=== PATIENT | female | born 1980 | race Caucasian/White ===

== ENCOUNTER → 2021-05-22 15:16 | Outpatient (CLI) | payer OTHER, SELFPAY ==
--- NOTE | 2021-05-22 15:22 | MM_ITS ---
PROCEDURE: MM DIG SCREENING MAMM BI W/CAD Digital Breast Tomosynthesis Included CLINICAL INDICATION: Breast cancer screening No personal or family history of breast cancer. COMPARISON: This is a baseline exam, patient without complaints TECHNIQUE: Standard CC and MLO images and 3D Tomosynthesis was obtained. R2 CAD reviewed. FINDINGS: Moderate diffuse fibroglandular densities are seen throughout both breasts. There are 2 mole markers left breast. There are 2-3 nodular densities left breast and nodular density right breast. Recommend the patient return for spot compression views and ultrasound for additional evaluation though these likely are benign but this is a baseline study. There are no CAD markings. IMPRESSION: Fibrofatty parenchyma with nodular densities in each breast BI-RAD Category: 0 Need Additional Imaging Evaluation FOLLOW-UP: IMM Immediate Follow-up Recommended (A letter has been sent to the patient regarding results of the study.) Dictated by: Dr. Reece Santizo MD 05/24/2021 14:48 Dr. Reece Santizo MD in [place] 05/24/2021 14:48
== END ==
PROVIDERS: PCP Physician Assistant; Visit Provider Physician Assistant
DX: Z12.31 Encounter for screening mammogram for malignant neoplasm of breast (principal); M79.645 Pain in left finger(s)
CPT/HCPCS: 77063; 77067

== ENCOUNTER 2021-05-22 15:45 | Outpatient (RCR) | payer OTHER, SELFPAY | END 2021-05-22 16:47 | disposition home or self-care (01) | LOC: OT 15:45 | PROVIDERS: Visit Provider Physician Assistant | DX: M79.645 Pain in left finger(s) (principal) | CPT/HCPCS: 97763 ==

== ENCOUNTER → 2021-06-14 13:41 | Outpatient (CLI) | payer OTHER, SELFPAY ==
--- NOTE | 2021-06-14 | US_ITS ---
PROCEDURE: MM DIG MAMM BI DX W/CAD Digital Breast Tomosynthesis Included Right breast ultrasound complete Left breast ultrasound complete CLINICAL INDICATION: abn mamm COMPARISON: MG MM DIG SCREENING MAMM BI W/CAD from 05/22/2021 US US BREAST LT COMPLETE from 06/14/2021 US US BREAST RT COMPLETE from 06/14/2021 TECHNIQUE: Bilateral problem solving views performed along bilateral breast ultrasound. FINDINGS: There are scattered areas of fibroglandular density Right breast: Scattered small nodes are present in the axilla. Scattered small nodular opacities are present in the posterior 1/3 of the right breast. These have a benign appearance. On the CC view the spot-compression view initially showed some asymmetry in the deep slightly medial aspect of the right breast which appear to compress out on a subsequent spot view with faint benign-appearing nodular opacity in this region at approximately 6 mm. Right breast ultrasound: No cystic or solid nodules demonstrated. Few mildly prominent lymph nodes. Left breast: Benign-appearing 7 mm nodular density in the medial aspect of the left breast felt to be at the 10 o'clock region. No malignant appearing mass or malignant-appearing microcalcification. Left breast ultrasound: No cystic or solid nodules apparent. There are few mildly prominent lymph nodes. IMPRESSION: Probably benign findings. Small bilateral nodular lesions on the mammogram not demonstrated by ultrasound. Recommend six-month mammographic follow-up to confirm stability BI-RAD Category: 3 Probably Benign Finding Short Term Follow-Up FOLLOW-UP: 6M 6 Month Follow-up (A letter has been sent to the patient regarding results of the study.) Dictated by: Tommy Alvarez MD 06/26/2021 12:07 Tommy Alvarez MD in [place] 06/26/2021 12:07
== END ==
PROVIDERS: PCP Physician Assistant; Visit Provider Physician Assistant
DX: R92.8 Other abnormal and inconclusive findings on diagnostic imaging of breast (principal)
CPT/HCPCS: 76641; 77062; 77066; G0279

== ENCOUNTER → 2021-07-24 13:45 | Outpatient (CLI) | payer OTHER, SELFPAY ==
--- NOTE | 2021-07-24 13:48 | XR_ITS ---
PROCEDURE: XR HAND LT MIN 3V CLINICAL INDICATION: L Hand pain COMPARISON: No exams were available for comparison FINDINGS: No fracture or dislocation. No lytic or blastic change. There is normal mineralization. The joint spaces are well-preserved. No significant degenerative/arthritic changes. No erosive changes evident. Other findings:None. IMPRESSION: No acute findings. Dictated by: Tommy Alvarez MD 07/24/2021 14:52 Tommy Alvarez MD in [place] 07/24/2021 14:52
== END ==
PROVIDERS: PCP Physician Assistant; Visit Provider Nurse Practitioner Family
DX: M79.642 Pain in left hand (principal)
CPT/HCPCS: 73130

== ENCOUNTER → 2021-09-17 14:36 | Outpatient (CLI) | payer OTHER, SELFPAY ==
[2021-09-19 08:15] LABS: Estradiol 40.9 pg/mL (.); FSH 16.7 mIU/mL (.); LH 13.3 mIU/mL (.); Progesterone 0.2 ng/mL (.)
== END ==
PROVIDERS: PCP Nurse Practitioner Family; Visit Provider Obstetrics & Gynecology
DX: Z01.419 Encounter for gynecological examination (general) (routine) without abnormal findings (principal)
CPT/HCPCS: 36415; 82670; 83001; 83002; 84144

== ENCOUNTER → 2021-09-23 14:16 | Outpatient (CLI) | payer OTHER, SELFPAY ==
--- NOTE | 2021-09-23 14:16 | US_ITS ---
FINAL REPORT CLINICAL HISTORY: Amenorrhea X 1 YR FINDINGS: Transvaginal sonographic images of the pelvis were obtained. The uterus measures 9.3 x 4.1 x 5.5 cm. The endometrium measures 4 mm, which is within normal limits. There is a 1.6 cm presumed uterine fibroid. The right ovary measures 3.3 cm in length and left ovary measures 6.1 cm in length. Normal blood flow seen to the ovaries. 2 cystic masses are seen of the left ovary measuring up to 3.7 cm, favor cysts. There is no evidence of free fluid. IMPRESSION: Presumed uterine fibroid. Probable left ovarian cysts. Recommend 2?3 month follow-up ultrasound. Reviewed, Interpreted and Dictated by Live Campbell III, MD Transcribed by Therese Augustine Authenticated by Live Campbell III, MD on 09/23/2021 04:13:[address] [facility]
== END ==
PROVIDERS: PCP Nurse Practitioner Family; Visit Provider Obstetrics & Gynecology
DX: N91.2 Amenorrhea, unspecified (principal)
CPT/HCPCS: 76830